=== PATIENT | male | born 2000 | race Caucasian/White ===

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

== ENCOUNTER 2019-02-10 19:19 | Emergency (ER) | payer MEDICAID ==
[~2019-02-10] VITALS: Ht 190.5 cm; Wt 96.6 kg
[2019-02-10 19:41] VITALS: Ht 190.5 cm; Wt 96.6 kg
[2019-02-10 23:47] VITALS: BP 127/67
== END 2019-02-10 23:47 | disposition home or self-care (01) ==
LOC: ED 19:19
DX: S83.91XA Sprain of unspecified site of right knee, initial encounter (principal); S80.212A Abrasion, left knee, initial encounter; L03.115 Cellulitis of right lower limb; W01.0XXA Fall on same level from slipping, tripping and stumbling without subsequent striking against object, initial encounter; Y93.66 Activity, soccer; Y92.322 Soccer field as the place of occurrence of the external cause; Y99.8 Other external cause status

== ENCOUNTER 2019-10-26 19:53 | Inpatient (IN) | payer MEDICAID ==
[~2019-10-26] VITALS: Ht 190.5 cm; Wt 94.1 kg
[2019-10-26 20:02] VITALS: Ht 190.5 cm; Wt 94.1 kg
[2019-10-26 20:41] LABS: BASOPHIL % 0.4 % (0-2); PLATELET COUNT 290 x10^3mcL (130-400); RED CELL DISTRIBUTION WIDTH 13.2 % (11.5-14.5)
--- NOTE | 2019-10-26 21:00 | NUR ---
PT BIB [place], C/O INCREASED URINATION FREQUNCY, INCREASED THIRST, AND GENERALIZED THROBBING LIKE HEADACHE X3 DAYS. PT DENIES ANY VISION CHANGES, NAUSEA, OR DYSURIA. PT IS AAOX4, NO NUERO DEFICITS NOTED, RESP E/U, SKIN IS INTACT PINK WARM AND DRY. PT GOWNED, PLACE ON MONITOR, VSS, BED IN LOWEST POSITION, SIDERAIL X2 UP FOR SAFETY, CALL MACK WITHIN REACH. MSE COMPELETED BY DR GARG.
[2019-10-26 21:05] LABS: ALBUMIN 3.8 g/dL (3.4-5.0); ALKALINE PHOSPHATASE 75 U/L (46-116); ALT/SGPT 37 U/L (16-63); AST/SGOT 2 U/L (15-37); BILIRUBIN TOTAL 0.26 mg/dL (0.20-1.00); CALCIUM 8.9 mg/dL (8.5-10.1); CARBON DIOXIDE 28.4 mmol/L (21-32); CHLORIDE SERUM 98 mmol/L (98-107); GFR1 > 60 mL/min; POTASSIUM SERUM 4.3 mmol/L (3.5-5.1); SODIUM SERUM 134 mmol/L (136-145); TOTAL PROTEIN, SERUM 7.7 g/dL (6.4-8.2)
[2019-10-26 21:12] LABS: GLUCOSE SERUM 495 mg/dL (74-106)
--- NOTE | 2019-10-26 21:37 | NUR ---
PT REPORTS IMPROVED HEAD PAIN, STATES 2/10 AT THIS TIME. FLUIDS INFUSING NO INFILTRATION OF PAIN NOTED, NO DISTRESS NOTED, RESP E/U. PT ON FULL CM, NSR, VSS, WILL CONT TO MONITOR, SO AT THE BEDSIDE.
--- NOTE | 2019-10-26 23:10 | NUR ---
PT C/O HEADACHE PAIN, STATES 7/[address] BRITANY DAWSON MD TO PUT IN RX FOR PAIN MEDCIATION.
--- NOTE | 2019-10-26 23:20 | NUR ---
PT AMBULATED TO [facility] AND BACK TO [facility] WITH A STEADY GAIT WITHOUT INCIDENT.
--- NOTE | 2019-10-26 23:25 | NUR ---
MEDICATED PT WITH IV TORODOL PER MD ORDERS SEE EMAR, PT STATED VERBALI UNDERSTANDING OF MEDICATION TEACHING.
[2019-10-27] VITALS (7 sets, daily range): BP systolic 100–129; BP diastolic 49–82
--- NOTE | 2019-10-27 00:30 | NUR ---
PT REPORTS IMPROVED PAIN, STATES HEAD PAIN IS 2/10 AT THIS TIME. PT IN POSTIION OF COMFORT LAYING IN BED. PT IS AAO4, NO DISTRESS NOTED, RESP E/U. GIRLFRIEND REMAINS AT THE BEDSIDE. WILL CONT TO MONITOR.
--- NOTE | 2019-10-27 01:22 | NUR ---
REPORT GIVEN TO JERI MACIAS ON [facility]IT, WHO WILL ASSUME FURTHER CARE OF THIS PATIENT.
[2019-10-27 01:24] LABS: CHOLESTEROL/HDL RATIO 8.3
--- NOTE | 2019-10-27 01:45 | NUR ---
RECEIVED PT VIA W/C, ACCOMPANIED BY NURSE & GF. PT AOX4, REPORTS MILD NARAYAN (5/10) AND MINIMAL DIZZINESS UPON AMBULATION. PT REPORTS NRAAYAN MANAGEABLE AT THIS TIME. MEDSURG PT, DENIES CP. PULSES PALPABLE BILAT, DENIES NUMBNESS/TINGLING IN FEET. RESP EVEN AND UNLABORED ON RA, DENIES SOB. ABD SOFT, FLAT, DENIES ABD PAIN. PT REPORTS INCREASED APPETITE AND THIRST, REPORTS INCREASE URINATION. PT REPORTS NOT FEELING WELL FOR APPROXIMATELY 3 WEEKS (FATIGUED). PT REPORTS FAMILY HX OF DM (MOTHER) WHOM TAKES INJECTION INSULIN DAILY. PT DENIES N/V/D. PT REPORTS HIS URINE HAS BEEN VERY CLEAR D/T INCREASED WATER INTAKE. AMB, SKIN INTACT. IV SITE PT THE LAC PATENT, SALINE LOCKED AT THIS TIME. PT RECEIVED NS BOLUS X2 IN ER. ORIENTED PT TO ROOM AND CALL LIGHT, ALL COMFORT AND SAFETY MEASURES PROVIDED FOR, CALL LIGHT WITHIN REACH, BED IN LOWEST POSITION, WILL CONTINUE TO MONITOR.
--- NOTE | 2019-10-27 02:35 | NUR ---
CHECKED PT BLOOD SUGAR UPON ADMISSION= 320, PER RISS, WILL PROVIDE 12 UNITS REG INSULIN, DR. LEDESMA MADE AWARE AND RECOMMENDED COVERAGE FOR THIS BLOOD SUGAR. PT REMAINS AOX4, EDUCATED PT ON HYPOGLYCEMIA SYMPTOMS AND PROVIDED ORANGE JUICE D/T THIS IS PATIENTS FIRST TIME RECEIVING INSULIN. BRIEF DIABETIC EDUCATION PROVIDED D/T PT TIRED AND WANTS TO SLEEP. WILL REINFORCE TEACHING IN AM AND ENCOURAGE PT TO CHECK OWN SUGAR. ALL COMFORT AND SAFETY MEASURES PROVIDED FOR, CALL LIGHT WITHIN REACH, BED IN LOWEST POSITION, WILL CONTINUE TO MONITOR.
--- NOTE | 2019-10-27 05:00 | NUR ---
PT RESTED IN INTERVALS DURING SHIFT, NO ACUTE CHNAGES OCCURRING OVERNIGHT. PT DENIES HYPOGLYCEMIA SYMPTOMS DURING SHIFT, DENIES NARAYAN/DIZZINESS. PT REMAINS AOX4. WILL RECHECK SUGAR THIS MORNING. ALL COMFORT AND SAFETY MEASURES PROVIDED FOR, CALL LIGHT WITHIN REACH, BED IN LOWEST POSITION, WILL CONTINUE TO MONITOR.
[2019-10-27 06:58] LABS: CALCIUM 8.6 mg/dL (8.5-10.1); CARBON DIOXIDE 29.4 mmol/L (21-32); CHLORIDE SERUM 103 mmol/L (98-107); CREATININE SERUM 0.8 mg/dL (0.7-1.3); GFR1 > 60 mL/min; GLUCOSE SERUM 269 mg/dL (74-106); POTASSIUM SERUM 3.8 mmol/L (3.5-5.1); SODIUM SERUM 137 mmol/L (136-145)
[2019-10-27 07:02] LABS: PHOSPHOROUS 3.4 mg/dL (2.5-4.9)
[2019-10-27 07:11] LABS: BASOPHIL % 0.6 % (0-2); PLATELET COUNT 257 x10^3mcL (130-400); RED CELL DISTRIBUTION WIDTH 12.6 % (11.5-14.5)
--- NOTE | 2019-10-27 07:33 | NUR ---
RECEIVED IN NO RESP. DISTRESS. AWAKE, ALERT AND ORIENTED. VS WNL. HL PATENT. NO C/O HEADACHE AT THIS TIME. CALL LIGHT WITHIN REACH. FAMILY AT BEDSIDE. WILL CONTINUE WITH PLAN OF CARE.
--- NOTE | 2019-10-27 13:49 | NUR ---
C/O HEADACHE, MEDICATED WITH TYLENOL
--- NOTE | 2019-10-27 17:41 | NUR ---
PT INSTRUCTED ON INSULIN INJECTIONS. WAS ABLE TO DRAW THE RIGHT AMOUNT OF REG. INSULIN 6 UNITS, SELECTED THE RIGHT PLACE FOR INJECTION, CLEANED THE SITE WITH ALCOHOL SWAB AND SAFELY INJECTED THE INSULIN. PT WAS A LITTLE BIT NERVOUS AT FIRST BUT WAS ABLE TO DEMONSTRATE WELL.
--- NOTE | 2019-10-27 18:52 | NUR ---
PT REMAINS IN NO DISTRESS, RESTING AT THIS TIME. FAMILY AT BEDSIDE. NO C/O PAIN OR DISCOMFORT. VS WNL. HL PATENT. CALL LIGHT WITHIN REACH. WILL BE ENDORSED TO INCOMING SHIFT.
--- NOTE | 2019-10-27 19:39 | NUR ---
RECEIVED PATIENT IN BED AWAKE, ALERT AND ORIENTED WITH NO SIGN OF ACUTE DISTRESS. BREATHING EASYA ND NONLABOR. MED SURG PATIENT. C/O HEADACHE MEDICATED WITH TYLENOL 650MG PO PRESCRIBED. IV HEPLOCK TO LAC FLUSHED WITH NS. WILL CONTINUE TO MONITOR. CALL LIGHT WITHIN REACH.
--- NOTE | 2019-10-27 22:23 | NUR ---
VOIDED URINE SPECIMEN COLLECTED FOR UA, SENT TO LAB.
--- NOTE | 2019-10-27 23:29 | NUR ---
STILL AWAKE C/O HEADACHE MEDICATED WITH TYLENOL 650 MG PO PRESCRIBED. WILL CONTINUE TO MONITOR.
[2019-10-28 01:11] LABS: microscopic required? YES; urine erythrocyte TRACE (NEGATIVE)
--- NOTE | 2019-10-28 05:06 | NUR ---
SLEPT AT LONG INTERVALS C/O HEADACHE X2 THE ENTIRE SHIFT AND MEDICATED PRESCRIBED. ALL NEEDS ATTENDED.
[2019-10-28 05:20] VITALS: BP 115/56
[2019-10-28 06:25] LABS: CALCIUM 8.6 mg/dL (8.5-10.1); CARBON DIOXIDE 30.1 mmol/L (21-32); CHLORIDE SERUM 99 mmol/L (98-107); CREATININE SERUM 0.8 mg/dL (0.7-1.3); GFR1 > 60 mL/min; GLUCOSE SERUM 252 mg/dL (74-106); SODIUM SERUM 137 mmol/L (136-145)
[2019-10-28 06:33] LABS: BASOPHIL % 0.4 % (0-2); PLATELET COUNT 270 x10^3mcL (130-400); RED CELL DISTRIBUTION WIDTH 12.9 % (11.5-14.5)
--- NOTE | 2019-10-28 07:21 | NUR ---
RECEIVED PATIENT. EASILY AROUSABLE. NO ACUTE RESP DISTRESS NOTED. NO C/O PAIN AT THIS TIME. NO CONFUSION/ AGITATION NOTED. REMAINS NPO. PER NIGHT RN, WAITING FOR DR. ABRAHAM FOR TUNNEL PERMACATH PLACEMENT. RIJ KEVIN CATH INTACT. IV TO RFA AND LFA INTACT. NO INFILTRATION NOTED. SALINE LOCK TO BOTH IV. SLEPING IN RIGHT LATERAL POSITION. SAFETY PRECAUTION IN PLACE. BED IN LOW POSITION. CALL LIGHT WITHIN REACH. WILL CONTINUE TO MONITOR.
--- NOTE | 2019-10-28 07:23 | NUR ---
RECEIVED PATIENT. IN BED SLEEPING, EASILY AROUSABLE. IV TO LAC INTACT, NO INFILTRATION NOTED, SALINE LOCK. NO RESP DISTRESS NOTED. NO C/O PAIN AT THIS TIME. NO HEADACHE NOTED AT THIS TIME. WILL REINFORCE TEACHING REGARDING DIABETES AND INSULIN ADMINISTRATION. SAFETY PRECAUTION IN PLACE. CALL LIGHT WITHIN REACH. WILL CONTINUE TO MONITOR.
[2019-10-28 08:25] VITALS: BP 107/54
--- NOTE | 2019-10-28 09:40 | NUR ---
PATIENT IN BED, EATING BREAKFAST. NO ACUTE RESP DISTRESS NOTED. NO C/O PAIN AT THIS TIME. IV INTACT AND PATENT. NO INFILTRATIONNOTED. SAFETY PRECAUTION IN PLACE. PROVIDED DIABETIC TEACHING. CALL LIGHT WITHIN REACH. WILL CONTINUE TO MONITOR.
[2019-10-28] MEDS ORDERED: Lancets (11:39)
[2019-10-28] MEDS ORDERED: GLUCOSE MONITOR (11:40)
--- NOTE | 2019-10-28 11:40 | NUR ---
PROVIDED EDUCATION ON HOW TO USE GLUCOMETER, SUPPLIES NEEDED, AND HOW TO PROPERLY USE LANCETS. PATIENT VERBALIZED AND DEMONSTRATED UNDERSTANDING. WILL CONTINUE TO MONITOR AND REINFORCE TEACHING.
[2019-10-28] MEDS ORDERED: BD ULTRA-FINE1 EAC4 MC (11:43)
[2019-10-28] MEDS ORDERED: [UNRECOGNIZED DRUG - SUPPLY] MC ×2 (11:43→11:49)
[2019-10-28] MEDS ORDERED: METER-CHECK1 EACH MC ×2 (11:45→11:50)
[2019-10-28] MEDS ORDERED: LANTUS SOLOS100 U/M1 SQ ×3 (11:46→12:25)
[2019-10-28] MEDS ORDERED: BD ULTRA-FINE1 EAC1 MC (11:48)
[2019-10-28 12:31] VITALS: BP 123/70
[2019-10-28 12:43] VITALS: BP 123/70
--- NOTE | 2019-10-28 12:56 | NUR ---
PATIENT COMPLAINING OF HEADACHE. REQUESTS TO HAVE PAIN MED BEFORE DISCHARGE. TYLENOL 650 MG PO GIVEN. TOLERATED WELL. WILL MONITOR BEFORE DISCHARGE.
--- NOTE | 2019-10-28 14:10 | NUR ---
DISCHARGE HOME INSTRUCTIONS GIVEN TO PATIENT. PATIENT VERBALIZED UNDERSTANDING. D/C IV TO LAC, TOLERATED WELL. CATHETER INTACT. TAPE AND GAUZE IN PLACE. ID BAND REMOVED. ALL QUESTIONS AND CONCERNS ADDRESSED. INSTRUCTED TO CALL WHEN READY TO LEAVE THE UNIT.
--- NOTE | 2019-10-28 14:15 | NUR ---
PATIENT IS BEING DISCHARGED IN STABLE CONDITION, NO HEADACHE NOTED. ALL BELONGINGS SENT HOME WITH PATIENT. ACCOMPANIED TO DISCHARGE OFFICE BY RN. ALL NEEDS MET.
== END 2019-10-28 14:15 | disposition home or self-care (01) | DRG 420 ==
LOC: ED 19:53 → MU 10-27 00:45
PROVIDERS: Emergency Medicine; ADMIT Family Medicine
DX: E10.65 Type 1 diabetes mellitus with hyperglycemia (principal); E78.5 Hyperlipidemia, unspecified; Z79.4 Long term (current) use of insulin; Z68.26 Body mass index [BMI] 26.0-26.9, adult
CPT/HCPCS: 82962; G0378; J1885; J7030

== ENCOUNTER 2019-11-20 19:38 | Emergency (ER) | payer MEDICAID ==
[~2019-11-20] VITALS: Ht 190.5 cm; Wt 94.8 kg
[~2019-11-20 19:38] MED LIST: BD ULTRA-FINE1 EAC1 MC; BD ULTRA-FINE1 EAC4 MC; GLUCOSE MONITOR; LANTUS SOLOS100 U/M1 SQ; Lancets; METER-CHECK1 EACH MC; [UNRECOGNIZED DRUG - SUPPLY] MC
[2019-11-20 19:59] VITALS: BP 117/75; Ht 190.5 cm; Wt 94.8 kg
== END 2019-11-20 23:32 | disposition home or self-care (01) ==
LOC: ED 19:38
DX: B34.9 Viral infection, unspecified (principal); E11.9 Type 2 diabetes mellitus without complications